=== PATIENT | male | born 1965 | race Caucasian/White ===

== ENCOUNTER 2017-05-27 10:03 | Emergency (ER) | payer MEDICAID ==
[~2017-05-27] VITALS: Ht 185.4 cm; Wt 54.5 kg
[~2017-05-27 10:03] MED LIST: GABA-532 PO; LORA-269 PO
[2017-05-27 10:19] VITALS: BP 145/91
[2017-05-27] MEDS ORDERED: LIDOcaine 1.5% w/epinephrine 1:200,000 5ml ampul IJ ONE (10:40)
[2017-05-27] MEDS ORDERED: TETanus/Pertussis (Acell)/Diphther VAC/PF (Tdap-Adult) 0.5ml syringe IM ONE (10:40)
[2017-05-27] MEDS ORDERED: DOXY100C43 PO (11:13)
== END 2017-05-27 11:34 | disposition home or self-care (01) ==
LOC: ER 10:03
DX: K61.1 Rectal abscess (principal); N45.4 Abscess of epididymis or testis; F17.200 Nicotine dependence, unspecified, uncomplicated; Z88.2 Allergy status to sulfonamides; Z60.2 Problems related to living alone
CPT/HCPCS: 10060; 90471; 90715; 99283; A6449; J3490

== ENCOUNTER 2018-03-23 11:36 | Emergency (ER) | payer MEDICAID ==
[~2018-03-23] VITALS: Ht 185.4 cm; Wt 53.0 kg
[2018-03-23] MEDS ORDERED: normal saline 1000ML IV soln IVB ONE ×2 (12:50→13:50)
[2018-03-23] MEDS ORDERED: LORazepam 2 mg/ml vial IV ONE (12:50)
[2018-03-23 13:04] LABS: BASOPHILS % (AUTO) 0.6 % (0-1); HEMATOCRIT 45.2 % (42.0-52.0); HEMOGLOBIN 15.7 g/dl (14.0-17.9); LYMPHOCYTES # (AUTO) 1.4 X10'3 (1.1-4.8); LYMPHOCYTES % (AUTO) 29.5 % (21-51); MEAN CORPUSCULAR HEMOGLOBIN 36.1 PG (27.0-31.0); MEAN CORPUSCULAR HGB CONC 34.8 g/dL (33.0-36.5); MEAN PLATELET VOLUME 7.5 FL (7.4-10.4); MONOCYTES # (AUTO) 0.5 X10'3 (0-0.9); MONOCYTES % (AUTO) 10.2 % (2-12); NEUTROPHILS # (AUTO) 2.8 X10'3 (1.8-7.7); NEUTROPHILS % (AUTO) 58.7 % (42-75); PLATELET COUNT 193 X10'3 (140-440); RED BLOOD COUNT 4.35 X10'6 (4.70-6.10); RED CELL DISTRIBUTION WIDTH 12.6 % (11.5-14.5); WHITE BLOOD COUNT 4.7 X10'3 (4.5-11.0)
[2018-03-23 13:23] LABS: ALANINE AMINOTRANSFERASE 34 U/L (12-78); ALBUMIN 4.1 G/DL (3.4-5.0); ALBUMIN/GLOBULIN RATIO 1.1 (1.1-1.5); ALKALINE PHOSPHATASE 104 IU/L (46-116); ANION GAP 18 (8-16); ASPARTATE AMINO TRANSFERASE 59 U/L (10-37); BILIRUBIN,TOTAL 1.1 MG/DL (0.1-1.0); BLOOD UREA NITROGEN 11 MG/DL (7-18); CALCIUM 9.5 MG/DL (8.5-10.1); CHLORIDE 98 MMOL/L (99-107); GLUCOSE 88 MG/DL (70-104); POTASSIUM 3.7 MMOL/L (3.5-5.1); SODIUM 139 MMOL/L (135-145); TOTAL CARBON DIOXIDE 23.2 MMOL/L (24-32); TOTAL PROTEIN 7.9 G/DL (6.4-8.2); eGFR 70 ML/MIN
[2018-03-23] MEDS ORDERED: chlordiazePOXIDE 25mg capsule PO ONE (13:50)
[2018-03-23] MEDS ORDERED: CHLO25CA10 PO (14:01)
[2018-03-23] MEDS ORDERED: GABA-532 PO (14:01)
[2018-03-23 14:54] VITALS: BP 142/95
== END 2018-03-23 14:57 | disposition home or self-care (01) ==
LOC: ER 11:37
DX: F10.239 Alcohol dependence with withdrawal, unspecified (principal); F41.9 Anxiety disorder, unspecified; R06.02 Shortness of breath; R05 Cough; R11.10 Vomiting, unspecified; R00.0 Tachycardia, unspecified; Z88.2 Allergy status to sulfonamides; Z60.2 Problems related to living alone; Y90.9 Presence of alcohol in blood, level not specified
CPT/HCPCS: 36415; 71045; 80053; 85025; 93005; 96361; 96374; 99284; J2060; J7030

== ENCOUNTER 2020-08-28 19:46 | Emergency (ER) | payer MEDICAID, OTHER ==
[~2020-08-28] VITALS: Ht 182.9 cm; Wt 53.6 kg
[~2020-08-28 19:46] MED LIST changes: -GABA-532 PO; +LACT1CAP26 PO; +MAGN400C PO; +MULT-1085 PO; +PANT40TA54 PO; +SERT-432 PO; +THIA50TA10 PO; +VANC25SO PO
[2020-08-28 20:26] VITALS: BP 131/84
[2020-08-28] MEDS ORDERED: LORazepam 2 mg/ml vial IV ONE (20:40)
[2020-08-28] MEDS ORDERED: normal saline 1000ML IV soln IVB ONE (20:40)
[2020-08-28 20:42] LABS: HEMOGLOBIN 13.3 g/dl (14.0-17.9); MEAN PLATELET VOLUME 8.8 FL (7.4-10.4); PLATELET COUNT 233 X10'3 (140-440); WHITE BLOOD COUNT 8.2 X10'3 (4.5-11.0)
[2020-08-28 20:44] LABS: BASOPHILS # (AUTO) 0.1 X10'3 (0-0.2); BASOPHILS % (AUTO) 0.7 % (0-1); EOSINOPHILS % (AUTO) 0.3 % (0-6); HEMATOCRIT 38.1 % (42.0-52.0); LYMPHOCYTES # (AUTO) 1.5 X10'3 (1.1-4.8); LYMPHOCYTES % (AUTO) 18.5 % (21-51); MEAN CORPUSCULAR HEMOGLOBIN 39.1 PG (27.0-31.0); MEAN CORPUSCULAR HGB CONC 34.9 g/dL (33.0-36.5); MEAN CORPUSCULAR VOLUME 112.2 FL (78-98); MONOCYTES # (AUTO) 0.5 X10'3 (0-0.9); MONOCYTES % (AUTO) 6.2 % (2-12); NEUTROPHILS # (AUTO) 6.1 X10'3 (1.8-7.7); NEUTROPHILS % (AUTO) 74.3 % (42-75); RED CELL DISTRIBUTION WIDTH 14.8 % (11.5-14.5)
[2020-08-28 20:58] LABS: ALANINE AMINOTRANSFERASE 85 U/L (12-78); ALBUMIN 3.5 G/DL (3.4-5.0); ALBUMIN/GLOBULIN RATIO 0.9 (1.1-1.5); ALKALINE PHOSPHATASE 213 IU/L (46-116); ANION GAP 17 (8-16); ASPARTATE AMINO TRANSFERASE 141 U/L (10-37); BILIRUBIN,TOTAL 2.9 MG/DL (0.1-1.0); BLOOD UREA NITROGEN 9 MG/DL (7-18); BUN/CREATININE RATIO 7.4 (5.4-32.0); CHLORIDE 99 MMOL/L (99-107); CREATININE 1.21 MG/DL (0.60-1.10); GLUCOSE 127 MG/DL (70-104); SODIUM 138 MMOL/L (135-145); TOTAL CARBON DIOXIDE 21.7 MMOL/L (24-32); TOTAL PROTEIN 7.4 G/DL (6.4-8.2); TROPONIN I < 0.04 NG/ML (0.0-0.05); eGFR 62 ML/MIN
[2020-08-28 20:59] LABS: POTASSIUM 2.6 MMOL/L (3.5-5.1)
[2020-08-28] MEDS ORDERED: magnesium Cl slow-release 64mg tablet PO ONE (21:05)
[2020-08-28] MEDS ORDERED: potassium Cl 20 mEq SR tablet PO STA (21:05)
[2020-08-28] MEDS ORDERED: chlordiazePOXIDE 25mg capsule PO ONE (21:30)
[2020-08-28] MEDS ORDERED: CHLO25CA10 PO (21:56)
== END 2020-08-28 22:39 | disposition home or self-care (01) ==
LOC: ER 19:47
DX: F10.20 Alcohol dependence, uncomplicated (principal); E83.42 Hypomagnesemia; E87.6 Hypokalemia; R53.1 Weakness; R19.7 Diarrhea, unspecified; K21.9 Gastro-esophageal reflux disease without esophagitis; F41.9 Anxiety disorder, unspecified; Z72.89 Other problems related to lifestyle; Z60.2 Problems related to living alone; Z88.2 Allergy status to sulfonamides; Z79.899 Other long term (current) drug therapy; Z79.2 Long term (current) use of antibiotics; Y90.9 Presence of alcohol in blood, level not specified
CPT/HCPCS: 71045; 80053; 83735; 83880; 84484; 85025; 93005; 96361; 96374; 99285; J2060; J7030; 96360